=== PATIENT | female | born 1955 | race Caucasian/White ===

== ENCOUNTER → 2016-07-30 | Outpatient (CLI) | payer OTHER | LOC: FIMAGING 10:14 | PROVIDERS: ATTEND Internal Medicine Hematology & Oncology | DX: Z12.31 Encounter for screening mammogram for malignant neoplasm of breast (principal) | CPT/HCPCS: G0202 ==

== ENCOUNTER → 2017-08-11 | Outpatient (CLI) | payer OTHER | LOC: FIMAGING 15:19 | PROVIDERS: ATTEND Internal Medicine Hematology & Oncology | DX: Z12.31 Encounter for screening mammogram for malignant neoplasm of breast (principal); Z85.3 Personal history of malignant neoplasm of breast ==

== ENCOUNTER 2018-06-28 14:14 | Day surgery (SDC) | payer OTHER ==
[2018-06-28] MEDS ORDERED: LR 1,000 ML IV ONE (15:21)
[2018-06-28] MEDS ORDERED: clonazePAM 1 MG TAB PO ONE (15:45)
--- NOTE | 2018-06-28 16:22 | PDGENHP ---
History & Physical Chief Complaint: dysphagia History of Present Illness: long standing progressive dysphagia Pertinent Past, Social, Family History: alcohol - rare. tobacco - none. MS, bipolar, hx breat cancer. FHx - cancer great aunt breast Relevant Physical Exam: A+Ox3. CTA. S1S2. +BS soft nt Cardiorespiratory Assessment: class III
--- NOTE | 2018-06-28 16:37 | PDANEPAE ---
ANE Past Medical History - Cardiovascular History Hx Hypertension: No Hx Arrhythmias: No Hx Chest Pain: No Hx Coronary Artery / Peripheral Vascular Disease: No Hx CHF / Valvular Disease: No Hx Palpitations: No Cardiovascular History Comment: no cp - Pulmonary History Hx COPD: No Hx Asthma/Reactive Airway Disease: No Hx Recent Upper Respiratory Infection: No Hx Oxygen in Use at Home: No Hx Sleep Apnea: No Sleep Apnea Screening Result - Last Documented: Negative Pulmonary History Comment: denies sob w stairs - Neurologic History Hx Cerebrovascular Accident: No Hx Seizures: No Hx Dementia: No Neurologic History Comment: MS- 09/2011. FINE [employer]OR DEXTERITY - Endocrine History Hx Diabetes: Yes Endocrine History Comment: HYPOTHYROID - Renal History Hx Renal Disorders: No Renal History Comment: INTERSTITIAL CYSTITIS - Liver History Hx Hepatic Disorders: No - Neurological & Psychiatric Hx Hx Neurological and Psychiatric Disorders: No Neurological / Psychiatric History Comment: DEPRESSION - Cancer History Hx Cancer: Yes Cancer History Comment: R BREAST CA - Congenital Disorder History Hx Congenital Disorders: No - GI History Hx Gastrointestinal Disorders: Yes Gastrointestinal History Comment: REFLUX. CONSTIPATION. HOARSENESS - Other Health History Other Health History: NEG - Chronic Pain History Chronic Pain: No - Surgical History Prior Surgeries: R BREAST BX. r knee scope 1-2013. l knee scope 2009. tonsils. polypectomyx 2. myomectomy. lumpectomy r 2004. axillary maira dissection ANE Review of Systems Review of Systems: - Exercise capacity METS (RN): 4 METS ANE Patient History - Allergies Allergies/Adverse Reactions: wheat Allergy (Severe, Verified 12/21/14 18:34) TIGHTNESS IN CHEST cephalexin monohydrate [From Keflex] Allergy (Verified 12/21/14 18:34) UNK coconut oil Allergy (Verified 12/21/14 18:34) Penicillins Allergy (Verified 12/21/14 18:34) UNK Sulfa (Sulfonamide Antibiotics) Allergy (Verified 12/21/14 18:34) UNK OATS Allergy (Severe, Uncoded 12/21/14 18:34) TIGHTNESS IN CHEST YEAST Allergy (Severe, Uncoded 12/21/14 18:34) TIGHTNESS IN CHEST ENVIRONMENTAL Allergy (Mild, Uncoded 12/21/14 18:34) SINUS PROB, SNEEZING rice Allergy (Uncoded 12/21/14 18:34) - Home Medications Home Medications: Albuterol [Proventil Inhaler HFA (*)] 2 puffs IH Q4 PRN 01/04/14 [Last Taken Unknown] Budesonide/Formoterol 160/4.5 [Symbicort 160-4.5 Mcg Inh (*)] 1 puffs IH BID [Last Taken Unknown] Diazepam [Valium 10 MG (*)] 10 mg PO BID 01/04/14 [Last Taken Unknown] Gabapentin [Neurontin 400 MG (*)] 1,200 mg PO TID 01/04/14 [Last Taken 06/28/18] Levothyroxine [Synthroid 125 mcg (*)] 125 mcg PO DAILY06 01/04/14 [Last Taken Unknown] QUEtiapine FUMARATE [Seroquel 50 mg (*)] 75 mg PO HS 01/04/14 [Last Taken Unknown] clonazePAM [klonoPIN (*)] 1 mg PO TID 01/04/14 [Last Taken 06/28/18] lamOTRIGine [Lamotrigine] 100 mg PO TID 01/04/14 [Last Taken 06/28/18] Naltrexone 06/27/18 [Last Taken Unknown] Nexium 06/27/18 [Last Taken Unknown] Trazodone HCl 06/27/18 [Last Taken Unknown] Wellbutrin Sr 06/27/18 [Last Taken Unknown] - NPO status NPO Since - Liquids (Date): 06/28/18 NPO Since - Liquids (Time): 07:00 NPO Since - Solids (Date): 06/27/18 NPO Since - Solids (Time): 19:30 - Smoking Hx Smoking Status: Former smoker - Family Anes Hx Family Hx Anesthesia Complications: none ANE Labs/Vital Signs - Vital Signs Blood Pressure: 141/83 Heart Rate: 78 Respiratory Rate: 18 O2 Sat (%): 97 Height: 166.37 cm Weight: 48.534 kg ANE Physical Exam - Airway Neck exam: FROM Mallampati Score: Class 1 Mouth exam: normal dental/mouth exam - Pulmonary Pulmonary: no respiratory distress, no rales or rhonchi, clear to auscultation - Cardiovascular Cardiovascular: regular rate and rhythym, no murmur, rub, or gallop - ASA Status ASA Status: III ANE Anesthesia Plan Anesthesia Plan: GA with mask Total IV Anesthesia: Yes
--- NOTE | 2018-06-28 16:39 | POSTANESTH ---
Post Anesthetic Evaluation Cardiovascular Status: Normal, Stable Respiratory Status: Normal, Stable Level of Consciousness/Mental Status: Can Participate in Eval Pain Control: Adequate, Prn Tx Ordered Nausea/Vomiting Control: Adequate, Prn Tx Ordered Complications Possibly Related to Anesthesia: None Noted
[2018-06-28] MEDS ORDERED: LIDOCAINE 2% 2 ML INJ ONE (16:53)
[2018-06-28] MEDS ORDERED: PROPOFOL/EMULSION 500 MG/50 ML BOTTLE IV ONE (16:53)
--- NOTE | 2018-06-28 17:22 | GIREPORT ---
[facility] Surgical Services - Endoscopy Department Patient Name: Josephine Farris Procedure Date: 06/28/2018 4:17 PM Patient Type: Outpatient Attending MD/ ER Physician: Roland Parham MD Procedure: Upper GI endoscopy Indications: Dysphagia - likely a motility disorder given no visible dilation form a 60 nepali (20 mm) Savary dilator Providers: Roland Parham MD Referring MD: Shen Rodríguez Medicines: Propofol per Anesthesia Complications: No immediate complications. Estimated blood loss: Minimal. Description of Procedure: After obtaining informed consent, the endoscope was passed under direct vision. Throughout the procedure, the patient's blood pressure, pulse, and oxygen saturations were monitored continuously. The Endoscope was intro duced through the mouth, and advanced to the third part of duodenum. The uppe r GI endoscopy was accomplished without difficulty. The patient tolerated th e procedure well. Findings: The examined esophagus was normal. A guidewire was placed and the scope was withdrawn. Dilation was performed with a Savary dilator with no resista nce at 51 Fr, 54 Fr, 57 Fr and 60 Fr. The dilation site was examined follow ing endoscope reinsertion and showed no change. Estimated blood loss: none. Biopsies were obtained from the proximal and distal esophagus with cold forceps for histology of suspected eosinophilic esophagitis. Diffuse mild inflammation characterized by erythema, friability and granularity was found in the gastric antrum. Biopsies were taken with a cold forceps for histology. Estimated blood loss was minimal. The examined duodenum was normal. The exam was otherwise without abnormality. Estimated Blood Loss: Estimated blood loss was minimal. Post Op Diagnosis: - Normal esophagus. Dilated with no visible effect. Biopsied. - Gastritis. Biopsied. - Normal examined duodenum. - The examination was otherwise normal. Recommendation: - Await pathology results. - My office will call with the pathology result with 5-7 days. If you h ave not heard from my office by 12-14, do not assume the pathology is magdaleno l, please call [phone] to get the pathology results. - Use Protonix (pantoprazole) 40 mg PO BID for 1 month. Take 30-60 herberth alden before breakfast and dinner. When finished go back to Nexium - Perform routine esophageal manometry at appointment to be scheduled. - Consider esophagram with Barium tablet. - Resume regular diet. - Patient has a contact number available for emergencies. The signs and symptoms of potential delayed complications were discussed with the pat ient. Return to normal activities tomorrow. Written discharge instructions we re provided to the patient. - Continue present medications. - Discharge patient to home (ambulatory). - Return to primary care physician as previously scheduled. - Return to GI clinic after studies are complete. - Thank you for allowing me to help in your patient's care. Do not hesi youssef to call with any questions. Attending Participation: I personally performed the entire procedure. Dione Aguilar M.D Roland Parham MD 06/28/2018 5:21:43 PM This report has been signed electronicallyMattbeverlyw MD Dione Number of Addenda: 0 Note Initiated On: 06/28/2018 4:17 PM [email or web address]
[2018-06-28 19:06] VITALS: BP 143/87
== END 2018-06-28 19:10 | disposition home or self-care (01) ==
LOC: FSGY 14:14
PROVIDERS: ATTEND Internal Medicine Gastroenterology
DX: K22.4 Dyskinesia of esophagus (principal); R13.10 Dysphagia, unspecified; K29.71 Gastritis, unspecified, with bleeding
CPT/HCPCS: J2704